=== PATIENT | male | born 1985 | race Caucasian/White ===

== ENCOUNTER 2019-10-23 15:18 | Emergency (ER) | payer OTHER ==
[2019-10-23 15:30] VITALS: BP 112/68; PULSE 85; RESP 18; TEMP 98
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
[2019-10-23] MEDS ORDERED: HYDROcodone/APAP 5-325MG 1 EACH TAB PO STA (16:51)
== END 2019-10-23 17:11 | disposition home or self-care (01) ==
LOC: EC 15:18
DX: S09.90XA Unspecified injury of head, initial encounter (principal); T20.10XA Burn of first degree of head, face, and neck, unspecified site, initial encounter; W39.XXXA Discharge of firework, initial encounter; Y93.89 Activity, other specified; Y92.89 Other specified places as the place of occurrence of the external cause
CPT/HCPCS: 70450; 72125; 99283